=== PATIENT | female | born 1960 ===

== ENCOUNTER 2016-09-24 12:51 | Emergency (ER) | payer OTHER, BC ==
[2016-09-24 12:58] VITALS: PULSE 73; RESP 18; TEMP 98.2; O2SAT 98
[2016-09-24] MEDS ORDERED: Oxycodone/Acetaminophen 5/325 mg Tab PO STA (13:17)
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
--- NOTE | 2016-09-24 15:02 | ED PDOC ---
- ECG O2 Sat by Pulse Oximetry: 98 (RA) Pulse Ox Interpretation: Normal - CT Scan/US head CT Other Rad Studies (CT/US): Read By Radiologist, Radiology Report Reviewed cervical spine CT Other Rad Studies (CT/US): Read By Radiologist, Radiology Report Reviewed lumbar spine CT Other Rad Studies (CT/US): Read By Radiologist, Radiology Report Reviewed - Progress Re-evaluation Time: 16:16 Condition: Re-examined, Improved Medical Decision Making Medical Decision Making: Receiving Sign Out: Pt signed out to me by Dr. Dunham pending CT results and final disposition. 15:[address] read and reviewed by radiologist FINDINGS: HEMORRHAGE: No intracranial hemorrhage. BRAIN: No mass effect or edema. No atrophy or chronic microvascular ischemic changes. VENTRICLES: Unremarkable. No hydrocephalus. CALVARIUM: Unremarkable. PARANASAL SINUSES: Unremarkable as visualized. No significant inflammatory changes. MASTOID AIR CELLS: Unremarkable as visualized. No inflammatory changes. OTHER FINDINGS: None. IMPRESSION: Normal CT of the Head. 15:[address] read and reviewed by radiologist FINDINGS: VERTEBRAE: No fracture. Normal alignment. No destructive bony lesion. DISCS/SPINAL CANAL/NEURAL FORAMINA: No significant central canal or neural foraminal stenosis. Discs heights are grossly preserved. PARASPINAL SOFT TISSUES: Unremarkable. OTHER FINDINGS: None. IMPRESSION: Unremarkable CT of the cervical spine. 15:[address] read and reviewed by radiologist FINDINGS: VERTEBRAE: Unremarkable. No fracture. Normal alignment. DISCS/SPINAL CANAL/NEURAL FORAMINA: L1-2: Unremarkable. L2-3: Unremarkable. L3-4: Unremarkable. L4-5: Unremarkable. L5-S1: Facet arthropathy. PARASPINAL SOFT TISSUES: Unremarkable. OTHER FINDINGS: None. IMPRESSION: No fracture. Scribe Attestation: Documented by Linda Garcia acting as a scribe for Missy Mtz MD. Provider Attestation: All medical record entries made by the Scribe were at my direction and personally dictated by me. I have reviewed the chart and agree that the record accurately reflects my personal performance of the history, physical exam, medical decision making, and the department course for this patient. I have also personally directed, reviewed, and agree with the discharge instructions and disposition. Disposition Doctor Will See Patient In The: Office Counseled Patient/Family Regarding: Studies Performed, Diagnosis, Need For Followup - Clinical Impression Clinical Impression: Neck pain, Back pain - POA Present On Arrival: None - Disposition Referrals: [facility] [Outside] Disposition: Routine/Home Disposition Time: 16:16 Condition: GOOD Additional Instructions: Follow up with your PCP in 2-3 days. Take medications as instructed. Prescriptions: Cyclobenzaprine [Cyclobenzaprine HCl] 10 mg PO TID PRN #15 tab PRN Reason: Muscle Spasm Instructions: Muscle Spasm (ED)
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
[2016-09-24 16:57] VITALS: BP 120/98
== END 2016-09-24 16:45 | disposition home or self-care (01) ==
LOC: H.ER 12:51
DX: M54.2 Cervicalgia (principal); M54.5 Low back pain; V43.52XA Car driver injured in collision with other type car in traffic accident, initial encounter; Y92.410 Unspecified street and highway as the place of occurrence of the external cause